=== PATIENT | female | born 1945 | race Caucasian/White ===

== ENCOUNTER → 2023-07-14 08:57 | Outpatient (REF) | payer OTHER, SELFPAY | LOC: RCS 08:57 | PROVIDERS: ATTENDING PHYSICIAN Internal Medicine Cardiovascular Disease; FAMILY PHYSICIAN Family Medicine | DX: I48.0 Paroxysmal atrial fibrillation (principal) | CPT/HCPCS: 93306 ==

== ENCOUNTER → 2024-05-16 12:54 | Outpatient (REF) | payer OTHER, SELFPAY | LOC: HWWDC 12:54 | PROVIDERS: ATTENDING PHYSICIAN Internal Medicine | DX: M85.80 Other specified disorders of bone density and structure, unspecified site (principal); Z12.31 Encounter for screening mammogram for malignant neoplasm of breast; M81.0 Age-related osteoporosis without current pathological fracture | CPT/HCPCS: 77063; 77067; 77080 ==

== ENCOUNTER → 2024-07-14 09:02 | Outpatient (REF) | payer OTHER, SELFPAY | LOC: RAD 09:02 | PROVIDERS: ATTENDING PHYSICIAN Nurse Practitioner; FAMILY PHYSICIAN Internal Medicine | DX: N39.46 Mixed incontinence (principal); N81.12 Cystocele, lateral; N20.0 Calculus of kidney | CPT/HCPCS: 76770; 76856 ==

== ENCOUNTER → 2024-07-25 09:23 | Outpatient (REF) | payer OTHER, SELFPAY | LOC: HWRAD 09:23 | PROVIDERS: ATTENDING PHYSICIAN Nurse Practitioner; FAMILY PHYSICIAN Internal Medicine | DX: N20.0 Calculus of kidney (principal) | CPT/HCPCS: 74176 ==

== ENCOUNTER 2024-12-04 15:00 | Emergency (ER) | payer OTHER, SELFPAY ==
[2024-12-04 15:04] VITALS: BP 134/68
[2024-12-04 15:43] LABS: Hematocrit 34.7 % (37.0-47.0); Hemoglobin 11.7 g/dL (12.0-16.0); Mean Corp Hgb Conc. 33.7 g/dL (33.0-37.0); Mean Corpuscular Volume 92.5 fL (81.0-99.0); Nucleated Red Blood Cells % 0 %; Platelet Count 205 10^3/uL (130-400); Red Cell Dist. Width 12.9 % (11.5-14.5)
[2024-12-04 15:56] LABS: ALT (SGPT) 12 U/L (0-35); AST (SGOT) 18 U/L (14-36); Albumin 4.0 g/dl (3.5-5.0); Alkaline Phosphatase 63 U/L (38-126); Blood Urea Nitrogen 27 mg/dl (7-17); Calcium 9.1 mg/dl (8.4-10.2); Carbon Dioxide 27 mmol/L (22-30); Chloride 103 mmol/L (98-107); Glucose 157 mg/dl (70-99); Potassium 3.8 mmol/L (3.5-5.1); Sodium 136 mmol/L (135-145); Total Protein 6.8 g/dl (6.3-8.2); eGFR 57.66
[2024-12-04 16:08] VITALS: BP 133/62
--- NOTE | 2024-12-04 16:26 | ED.GENMED ---
History of Present Illness
General
Chief Complaint: Fainting/Passed Out
Source: patient
Exam Limitations: none
Time Seen by Provider: 12/04/24 16:06
Nursing documentation reviewed up to this point in time: agreed with
History of Present Illness
History of Present Illness:
Patient is a 79-year-old female presents to the ER for evaluation after syncopal episode. Patient initially reported to triage it was on Thursday but it was on Thursday. She reports on Thursday morning she was in the shower and felt very weak and
lightheaded and while getting out of the shower passed out. She woke up on the floor and was confused at the time. She went to bed and laid in bed throughout the day yesterday. She had no associated headache or nausea or vomiting. She presents
here because she is on Eliquis and came for evaluation. The day prior to her episode of syncope she was very tired (after having babysat grandchildren )and slept all day and did not really eat or drink much.
She does complain of bruising to her forehead and around the right eye orbital region.
Past History
Past History
ED Past Medical History: GERD, HTN, Hypothyroidism and Other (Kidney stones)
ED Past Surgical History: None
Social History
Tobacco: Non-smoker
Alcohol: None
Drug: None
Personal:
Living: with family
Employment: Retired
Phy Exam
General Physical Exam
General Presentation: no apparent distress
General age: appears stated age
General Skin: warm and dry
General Habitus: elderly
General Mental: alert
General Hydration: dry mucous membranes
Cardiovascular Exam
Cardiovascular Exam: regular rate/rhythm, no murmur and normal peripheral pulses
Pulmonary Exam
Pulmonary Exam: lungs clear and no respiratory distress
Neurological Exam
Neurological Exam: alert, oriented x3, no motor deficits and no sensory deficits
Musculoskeletal Exam
Musculoskeletal Exam: full ROM and other (Ecchymosis to+ right forehead and right lateral orbit, mild ecchymosis to left knee mild anterior tenderness full rom )
Skin Exam
Skin Exam: normal color and warm/dry
Psychiatric Exam
Psychiatric Exam: normal mood/affect
Course
Orders/Labs/Results
Orders:
Orders
12/04/24 15:10
EKG [Electrocardiogram (*1)] Urgent
Reason for Study: Tachycardia
EKG- Treatment ONCE
12/04/24 15:26
Complete Blood Count/With Diff Urgent
Comprehensive Metabolic Panel Urgent
12/04/24 16:34
CT Cervical Spine W/o Iv Contr Urgent
Comment:
Reason For Exam: trauma
CT Facial Bones W/o Iv Contras Urgent
Comment:
Reason For Exam: trauma right orbital pain
CT Head W/o Iv Contrast Urgent
Comment:
Reason For Exam: trauma
12/04/24 16:35
Orthostatic VS- Treatment ONCE
12/04/24 16:36
Cardiac Monitoring- Treatment ONCE
IV Insert/Care/Rem.- Treatment PRN
0.9% Sodium Chloride 1000 ml [Nss] 1,000 ml IV BOLUS
12/04/24 17:58
Knee, Left 4 or More Views [CR Knee - Left 4 Or More View*] Urgent
Comment:
Reason For Exam: trauma
Abnormal Lab Results
12/04/24
15:26
RBC 3.75 L 10^6/uL
(4.20-5.40)
Hgb 11.7 L g/dL
(12.0-16.0)
Hct 34.7 L %
(37.0-47.0)
MCH 31.2 H pg
(27.0-31.0)
Immature Gran % 0.6 H %
(0-0.5)
Monocytes % 10.3 H %
(1.7-9.3)
BUN 27 H mg/dl
(7-17)
Glucose 157 H mg/dl
(70-99)
12/04/24 15:26
12/04/24 15:26
Vital Signs
Initial and Last Documented VS:
Initial Vital Signs
Temp Pulse Resp BP Pulse Ox
98.5 F 97 18 134/68 100
12/04/24 15:04 12/04/24 15:04 12/04/24 15:04 12/04/24 15:04 12/04/24 15:04
Last Documented Vital Signs
Temp Pulse Resp BP Pulse Ox
98.5 F 81 16 131/74 97
12/04/24 15:04 12/04/24 18:14 12/04/24 18:14 12/04/24 18:14 12/04/24 18:14
MDM/Problems Addressed
Differential Diagnosis Includes:
Not limited to dehydration syncope head injury
MDM/Problems Addressed:
Patient is a 79-year-old female on [facility] for A-fib presents after syncopal episode on Thursday. As documented she had a syncopal episode Thursday rested yesterday but came to the ER for evaluation today. She does have obvious bruising to her
forehead. She admits to not drinking a lot of water . She does appear slightly dry on exam. Her BUN is elevated consistent with dehydration. She was given fluids here. CT head facial bones and cervical spine all negative. Patient complained of
soreness to left knee x-rays are negative. Patient feels well up to go home with negative orthostatic vital signs.
Symptoms of syncope likely from dehydration.
Patient admits to not drinking or eating much the day prior to her syncopal episode.
Chronic conditions affecting care:
A-fib on [facility]
*Radiology
Radiology exam reviewed: radiology read reviewed
*Pulse Oximetry
SaO2: 100
Oxygen Mode of Delivery: Room air
Patient hypoxic: no
*EKG
Heart Rate: 86
Rate: normal
Rhythm: sinus
[place]: left axis deviation
Ischemia: non-specific ST changes
*Critical Care Note
Total Time (30-74mins, 75-104mins- exclusive of procedures): Not Applicable
ED Attending Note
-
Portions of this chart may have been created with voice recognition software.� Occasional wrong word or��sound alike� substitutions may have occurred due to the inherent limitations of voice recognition software.
Discharge Plan
Departure
Patient Disposition: Home (Routine Discharge)
Date of Disposition: 12/04/24
Time of Disposition: 18:51
Patient with high blood pressure during this ER visit?: Yes
Condition: Fair
Covid-19: Not Applicable
Discharge Problem:
Head injury, Syncope, Contusion, Acute dehydration
Instructions: Head injury in adults, Syncope (Fainting) (DC), Contusion
Prescriptions:
No Action
levothyroxine 88 MCG tablet
88 mcg PO DAILY
lysine 500 MG tablet
500 mg PO DAILY
omeprazole magnesium 20 MG tablet,delayed release (DR/EC)
20 mg PO DAILY
cholecalciferol (vitamin D3) 1,000 UNITS tablet
1,000 units PO DAILY
calcium carbonate-vitamin D3 [Calcium 600 + D(3)] 1 EACH tablet
1 ea PO HS
diltiazem HCl 120 mg Capsule,Extended Release 24hr
120 mg PO DAILY 30 Days Qty: 30 0RF
Eliquis 5 mg Tablet
5 mg PO BID 30 Days Qty: 60 0RF
Referrals:
Mario Mccarthy MD [Family Provider, Internal Medicine]
Activity Restrictions/Additional Instructions:
As discussed your CAT scans were negative. You were dehydrated and given fluids. Please increase your water intake. Your x-ray is also negative. Follow-up with your family doctor in the next several days for reevaluation. Return if any
worsening of symptoms
Interventions
Interventions:
*Risk Screen - Suicide Last Done: 12/04/24 15:04
*General Assessment Last Done: 12/04/24 15:04
*Neglect/Abuse Screening Last Done: 12/04/24 15:04
*ED- Fall Risk Assessment Last Done: 12/04/24 15:04
*ED COVID-19 Vaccine History Last Done: 12/04/24 15:04
*ED Influenza Vaccine History Last Done: 12/04/24 15:04
ED- Cardiac Assessment Last Done: 12/04/24 16:04
ED- Neurological Assessment Last Done: 12/04/24 16:04
Discharge Date and Time
Print Language: SWEDISH
[2024-12-04 16:46] VITALS: BP 132/65; BP 133/69; BP 138/64; PULSE 77; PULSE 81; PULSE 89
[2024-12-04] MEDS: NSS 1000 IV (17:04)
[2024-12-04 18:14] VITALS: BP 131/74
== END 2024-12-04 19:08 | disposition home or self-care (01) ==
LOC: EMR 15:00
PROVIDERS: Emergency Medicine; EMERGENCY PHYSICIAN Emergency Medicine; FAMILY PHYSICIAN Internal Medicine
DX: R55 Syncope and collapse (principal); E86.0 Dehydration; S00.83XA Contusion of other part of head, initial encounter; W19.XXXA Unspecified fall, initial encounter; E03.9 Hypothyroidism, unspecified; I10 Essential (primary) hypertension; I48.91 Unspecified atrial fibrillation; Z79.01 Long term (current) use of anticoagulants; Z87.442 Personal history of urinary calculi
CPT/HCPCS: 96360; 99284; 70450; 70486; 72125; 73564; 80053; 85025; 93005

== ENCOUNTER 2024-12-17 01:04 | Inpatient (IN) | payer OTHER, SELFPAY ==
[2024-12-16 16:24] VITALS: BP 153/77
[2024-12-16 16:42] LABS: Hematocrit 35.6 % (37.0-47.0); Hemoglobin 11.6 g/dL (12.0-16.0); Mean Corp Hgb Conc. 32.6 g/dL (33.0-37.0); Mean Corpuscular Volume 97.8 fL (81.0-99.0); Nucleated Red Blood Cells % 0 %; Platelet Count 239 10^3/uL (130-400); Red Cell Dist. Width 12.7 % (11.5-14.5)
[2024-12-16 17:04] LABS: ALT (SGPT) 13 U/L (0-35); AST (SGOT) 17 U/L (14-36); Albumin 3.9 g/dl (3.5-5.0); Alkaline Phosphatase 63 U/L (38-126); Blood Urea Nitrogen 17 mg/dl (7-17); Calcium 9.4 mg/dl (8.4-10.2); Carbon Dioxide 29 mmol/L (22-30); Chloride 103 mmol/L (98-107); Glucose 110 mg/dl (70-99); Potassium 3.7 mmol/L (3.5-5.1); Sodium 138 mmol/L (135-145); Total Protein 6.8 g/dl (6.3-8.2); eGFR > 60.00
--- NOTE | 2024-12-16 18:42 | ED.GENMED ---
History of Present Illness
<SHRUTI Chase - Last Filed: 12/18/24 01:44 EST>
General
Chief Complaint: Weakness
Source: patient
Exam Limitations: none
Time Seen by Provider: 12/16/24 18:29
Nursing documentation reviewed up to this point in time: agreed with
History of Present Illness
History of Present Illness:
Patient is a 79-year-old female presenting to the ER for evaluation. Patient was seen here December 04 for syncope head injury hydrated at that time and sent home. She reports this past Thursday she had a slight pain in her left abdomen and then
vomited. She also had an episode on Thursday when she drove to her son's house but does not recall how she got there. While there she developed chills and vomited and felt very weak. Since then she has had intermittent nausea and has felt weak.
She complains of worsening headache. In addition she does complain of intermittent left-sided abdominal pain.
She is on blood thinners. When she was seen in December 04 she had a head C-spine and facial bones all of which were negative. She also had complaints of knee pain at that time and her knee was x-rayed and negative. She is not recalling having
abdominal pain after initial injury.
Past History
<SHRUTI Chaes - Last Filed: 12/18/24 01:44 EST>
Past History
ED Past Medical History: GERD, HTN, Hypothyroidism and Other (Kidney stones)
ED Past Surgical History: None
Social History
Tobacco: Non-smoker
Alcohol: None
Drug: None
Personal:
Living: with family
Employment: Retired
Phy Exam
<SHRUTI Chase - Last Filed: 12/18/24 01:44 EST>
General Physical Exam
General Presentation: no apparent distress
General age: appears stated age
General Skin: warm and dry
General Habitus: elderly
General Mental: alert
General Hydration: appears well hydrated
ENT Exam
ENT Exam: EOMI
Eye Exam
Eye Exam: PERRL and other (Scattered right-sided ecchymosis around the eye and face)
Cardiovascular Exam
Cardiovascular Exam: regular rate/rhythm, no murmur and normal peripheral pulses
Pulmonary Exam
Pulmonary Exam: lungs clear and no respiratory distress
Gastrointestinal Exam
Gastrointestinal Exam: soft and other (left sided abd tenderness )
Neurological Exam
Neurological Exam: alert and oriented x3
Musculoskeletal Exam
Musculoskeletal Exam: full ROM and other (Scattered ecchymosis to right face)
Skin Exam
Skin Exam: normal color and warm/dry
Psychiatric Exam
Psychiatric Exam: normal mood/affect
Course
<SHRUTI Chase - Last Filed: 12/18/24 01:44 EST>
Orders/Labs/Results
Orders:
Orders
12/16/24 16:32
CBC/With Diff [Complete Blood Count/With Diff] Urgent
Comprehensive Metabolic Panel Urgent
12/16/24 19:12
CT Abd/pelvis W Iv Cont Urgent
Comment:
Reason For Exam: left side abd pain
CT Head W/o Iv Contrast Urgent
Comment:
Reason For Exam: trauma
12/16/24 19:13
0.9% Sodium Chloride 1000 ml [Nss] 1,000 ml IV BOLUS
Ondansetron Injectable [Zofran] 4 mg IV NOW STA
12/16/24 19:25
Electrocardiogram (*1) Stat
Reason for Study: Other
Other Reason for Exam: chest pain
Cardiac Monitoring- Treatment ONCE
EKG- Treatment ONCE
12/16/24 21:52
UA Reflex to Culture [Urinalysis Reflex To Culture] Urgent
Date Specimen was Collected: 12/16/24
Time Specimen was Collected: 21:50
Urine Microscopic Reflex Cult Urgent
Urine Culture Urgent
TAZ Source: U
Specimen Description:
Date Specimen was Collected: 12/16/24
Time Specimen was Collected: 21:50
12/16/24 23:16
LevoFLOXacin 500 MG/100 ML [Levaquin] 500 mg in 100 ml IV NOW
12/16/24 23:25
Blood Culture Q30M
TAZ Source: Blood/Venous
Specimen Description:
12/16/24 23:35
Blood Culture Q30M
TAZ Source: Blood/Venous
Specimen Description:
12/17/24 00:26
Admit/Transfer Patient As Directed
Co-Sign Provider:
Level of Care: Inpatient admission
Assign to:: Telemetry
Physician / Group: Christopher
Diagnosis: UTI, Renal Cyst v Abscess
Reason for Telemetry: Arrhythmia
Date to Stop Telemetry: 12/20/24
Time to Stop Telemetry: 11:00
Reason for Hospitalization: UTI, Renal Cyst v Abscess
Expected length of stay greater than two midnights?: Yes
ELOS- Estimated Length of Stay in days: 2
I certify the patient meets the requirements for IP care: Yes
PRN Pain Medication Management As Directed
May give lesser potent ordered pain med per pt: Yes
preference::
Protocol:: Medication orders for pain may be administered in a
manner that supports deferring to patient preference
when the pt is:
- Requesting an ordered lesser potent pain medication.
Least to most potent pain medications are defined
as: acetaminophen < NSAID < tramadol < opioids
(morphine, oxycodone, hydromorphone).
- Requesting a lesser dose of the same medication IF
ORDERED.
- Requesting a less intrusive route of administration
if both routes are prescribed by the provider (PO <
IV).
12/17/24 00:27
Code Status As Directed
Resuscitation Status: Full Code
12/17/24 02:50
Acetaminophen [Tylenol] 650 mg PO Q4HPRN PRN
12/17/24 02:50
UROLOGY CONSULT Routine
Consulting Provider: Gerson Garza
Was physician already notified: Yes
Comment: L renal cyst v abscess
Activity As Directed
Activity Level: Ambulate
With Assistance
Bladder Scan As Directed
Follow Bladder Retention/Intermittent Cath Algorithm?: Yes
PRN if no void in __ hours: 6
Frequency: Per Retention Algorithm
If Bladder Scan Result >: 400
then:: Straight cath
EKG with chest pain [ECG as needed] As Directed
ECG as needed for:: Chest Pain
I/O [Intake/ Output] As Directed
Frequency: Per unit guidelines
Orthostatic Vital Signs As Directed
Orthostatic VS Frequency: BID
Pneumatic Compression Sleeves As Directed
Type: Knee high
Straight Cath As Directed
Frequency: Per Retention Algorithm
Additional Instructions: straight cath as needed per acute urinary retention algorithm for 24 hrs
Additional Instructions: for bladder scan greater than 400 mL
Vital Signs As Directed
Frequency: Per unit guidelines
Oxygen Therapy [O2 Therapy] [RESP] Routine
Titrate/Wean O2 to maintain O2 sat greater than (%): 94
Ot Eval And Treat Routine
PT Consult [Pt Eval And Treat] Routine
Activity Level: Ambulate
With Assistance
DX Deep Vein Thrombosis Video Routine
12/17/24 04:00
CefTRIAXone [Rocephin] 1,000 mg IV Q24H
12/17/24 Breakfast
Clear Liquid
At Your Request: Full Participation
Levothyroxine [Synthroid] 75 mcg PO DAILY @ 0600
12/17/24 07:12
Basic Metabolic Panel IN AM
Complete Blood Count/No Diff IN AM
12/17/24 08:00
Diltiazem Extended Release [Cardizem Cd] 120 mg PO DAILY
12/20/24 11:00
DC Protocol for Telemetry ONCE
Abnormal Lab Results
12/16/24 12/16/24
16:32 21:52
RBC 3.64 L 10^6/uL
(4.20-5.40)
Hgb 11.6 L g/dL
(12.0-16.0)
Hct 35.6 L %
(37.0-47.0)
MCH 31.9 H pg
(27.0-31.0)
MCHC 32.6 L g/dL
(33.0-37.0)
Absolute Neuts (auto) 7.0 H 10^3/uL
(1.4-6.5)
Absolute Monos (auto) 0.8 H 10^3/uL
(0.1-0.6)
Lymphocytes % 16.3 L %
(20.5-51.1)
Glucose 110 H mg/dl
(70-99)
Ur Occult Blood Reflex 3+ A
(Negative)
Urine Nitrite (Reflex) Positive A
(Negative)
Leukocyte Esterase Rfl 2+ A
(Negative)
Urine RBC 21-25 A /HPF
(0-2)
Urine WBC (Reflex) 50-60 A /HPF
(0-5)
Urine Bacteria (Reflex) Many A
(Negative)
Urine Albumin (Reflex) 1+ A
(Neg - Trace)
12/16/24 16:32
12/16/24 16:32
Vital Signs
Initial and Last Documented VS:
Initial Vital Signs
Pulse Resp BP Pulse Ox
95 16 153/77 98
12/16/24 16:24 12/16/24 16:24 12/16/24 16:24 12/16/24 16:24
Last Documented Vital Signs
Temp Pulse Resp BP Pulse Ox
97.7 F 82 18 173/79 97
12/17/24 22:30 12/17/24 22:30 12/17/24 22:30 12/17/24 22:30 12/17/24 22:30
Restaurant Managing Partner consulted with Physician
Restaurant Managing Partner consulted with physician?: Yes
Name of Physician Consulted: DR Mitchell
<Da Ruiz, DO - Last Filed: 12/16/24 23:20>
Orders/Labs/Results
Orders:
Orders
12/16/24 16:32
CBC/With Diff [Complete Blood Count/With Diff] Urgent
Comprehensive Metabolic Panel Urgent
12/16/24 19:12
CT Abd/pelvis W Iv Cont Urgent
Comment:
Reason For Exam: left side abd pain
CT Head W/o Iv Contrast Urgent
Comment:
Reason For Exam: trauma
12/16/24 19:13
0.9% Sodium Chloride 1000 ml [Nss] 1,000 ml IV BOLUS
Ondansetron Injectable [Zofran] 4 mg IV NOW STA
12/16/24 19:25
Electrocardiogram (*1) Stat
Reason for Study: Other
Other Reason for Exam: chest pain
Cardiac Monitoring- Treatment ONCE
EKG- Treatment ONCE
12/16/24 21:52
UA Reflex to Culture [Urinalysis Reflex To Culture] Urgent
Date Specimen was Collected: 12/16/24
Time Specimen was Collected: 21:50
Urine Microscopic Reflex Cult Urgent
Urine Culture Urgent
TAZ Source: U
Specimen Description:
Date Specimen was Collected: 12/16/24
Time Specimen was Collected: 21:50
12/16/24 23:16
LevoFLOXacin 500 MG/100 ML [Levaquin] 500 mg in 100 ml IV NOW
12/16/24 23:25
Blood Culture Q30M
TAZ Source: Blood/Venous
Specimen Description:
12/16/24 23:35
Blood Culture Q30M
TAZ Source: Blood/Venous
Specimen Description:
12/17/24 00:26
Admit/Transfer Patient As Directed
Co-Sign Provider:
Level of Care: Inpatient admission
Assign to:: Telemetry
Physician / Group: Christopher
Diagnosis: UTI, Renal Cyst v Abscess
Reason for Telemetry: Arrhythmia
Date to Stop Telemetry: 12/20/24
Time to Stop Telemetry: 11:00
Reason for Hospitalization: UTI, Renal Cyst v Abscess
Expected length of stay greater than two midnights?: Yes
ELOS- Estimated Length of Stay in days: 2
I certify the patient meets the requirements for IP care: Yes
PRN Pain Medication Management As Directed
May give lesser potent ordered pain med per pt: Yes
preference::
Protocol:: Medication orders for pain may be administered in a
manner that supports deferring to patient preference
when the pt is:
- Requesting an ordered lesser potent pain medication.
Least to most potent pain medications are defined
as: acetaminophen < NSAID < tramadol < opioids
(morphine, oxycodone, hydromorphone).
- Requesting a lesser dose of the same medication IF
ORDERED.
- Requesting a less intrusive route of administration
if both routes are prescribed by the provider (PO <
IV).
12/17/24 00:27
Code Status As Directed
Resuscitation Status: Full Code
12/17/24 02:50
Acetaminophen [Tylenol] 650 mg PO Q4HPRN PRN
12/17/24 02:50
UROLOGY CONSULT Routine
Consulting Provider: Gerson Garza
Was physician already notified: Yes
Comment: L renal cyst v abscess
Activity As Directed
Activity Level: Ambulate
With Assistance
Bladder Scan As Directed
Follow Bladder Retention/Intermittent Cath Algorithm?: Yes
PRN if no void in __ hours: 6
Frequency: Per Retention Algorithm
If Bladder Scan Result >: 400
then:: Straight cath
EKG with chest pain [ECG as needed] As Directed
ECG as needed for:: Chest Pain
I/O [Intake/ Output] As Directed
Frequency: Per unit guidelines
Orthostatic Vital Signs As Directed
Orthostatic VS Frequency: BID
Pneumatic Compression Sleeves As Directed
Type: Knee high
Straight Cath As Directed
Frequency: Per Retention Algorithm
Additional Instructions: straight cath as needed per acute urinary retention algorithm for 24 hrs
Additional Instructions: for bladder scan greater than 400 mL
Vital Signs As Directed
Frequency: Per unit guidelines
Oxygen Therapy [O2 Therapy] [RESP] Routine
Titrate/Wean O2 to maintain O2 sat greater than (%): 94
Ot Eval And Treat Routine
PT Consult [Pt Eval And Treat] Routine
Activity Level: Ambulate
With Assistance
DX Deep Vein Thrombosis Video Routine
12/17/24 04:00
CefTRIAXone [Rocephin] 1,000 mg IV Q24H
12/17/24 Breakfast
Clear Liquid
At Your Request: Full Participation
Levothyroxine [Synthroid] 75 mcg PO DAILY @ 0600
12/17/24 07:12
Basic Metabolic Panel IN AM
Complete Blood Count/No Diff IN AM
12/17/24 08:00
Diltiazem Extended Release [Cardizem Cd] 120 mg PO DAILY
12/20/24 11:00
DC Protocol for Telemetry ONCE
Abnormal Lab Results
12/16/24 12/16/24
16:32 21:52
RBC 3.64 L 10^6/uL
(4.20-5.40)
Hgb 11.6 L g/dL
(12.0-16.0)
Hct 35.6 L %
(37.0-47.0)
MCH 31.9 H pg
(27.0-31.0)
MCHC 32.6 L g/dL
(33.0-37.0)
Absolute Neuts (auto) 7.0 H 10^3/uL
(1.4-6.5)
Absolute Monos (auto) 0.8 H 10^3/uL
(0.1-0.6)
Lymphocytes % 16.3 L %
(20.5-51.1)
Glucose 110 H mg/dl
(70-99)
Ur Occult Blood Reflex 3+ A
(Negative)
Urine Nitrite (Reflex) Positive A
(Negative)
Leukocyte Esterase Rfl 2+ A
(Negative)
Urine RBC 21-25 A /HPF
(0-2)
Urine WBC (Reflex) 50-60 A /HPF
(0-5)
Urine Bacteria (Reflex) Many A
(Negative)
Urine Albumin (Reflex) 1+ A
(Neg - Trace)
12/16/24 16:32
12/16/24 16:32
Vital Signs
Initial and Last Documented VS:
Initial Vital Signs
Pulse Resp BP Pulse Ox
95 16 153/77 98
12/16/24 16:24 12/16/24 16:24 12/16/24 16:24 12/16/24 16:24
Last Documented Vital Signs
Temp Pulse Resp BP Pulse Ox
97.7 F 82 18 173/79 97
12/17/24 22:30 12/17/24 22:30 12/17/24 22:30 12/17/24 22:30 12/17/24 22:30
<SHRUTI Chase - Last Filed: 12/18/24 01:44 EST>
MDM/Problems Addressed
MDM/Problems Addressed:
As documented patient is a 79-year-old female who presented to the ER for evaluation. Patient was seen here December 04 for syncope head injury. At that time she had imaging of her head facial bones and cervical spine all of which were negative.
Patient reports this past Thursday several days ago she did not feel well does not recall driving to her son's house though she did and did have the chills while there. She has has limited left-sided abdominal pain and has had worsening headache.
She is on Eliquis. With continued headache CAT scan ordered and pending at this time with patient's complaints of abdominal pain will order CAT scan. Pt is aao x3 nml neuro exam. CAre of pt transferred to DR Riuz with ct pendings.
Chronic conditions affecting care:
on eliquis for afib
<SHRUTI Chase - Last Filed: 12/18/24 01:44 EST>
*Radiology
Radiology exam reviewed: radiology read reviewed
*Pulse Oximetry
SaO2: 98
Oxygen Mode of Delivery: Room air
Patient hypoxic: no
*Critical Care Note
Total Time (30-74mins, 75-104mins- exclusive of procedures): Not Applicable
ED Attending Note
<SHRUTI Chase - Last Filed: 12/18/24 01:44 EST>
-
Portions of this chart may have been created with voice recognition software.� Occasional wrong word or��sound alike� substitutions may have occurred due to the inherent limitations of voice recognition software.
<Da Ruiz DO - Last Filed: 12/16/24 23:20>
ED Attending Note
Patient seen and examined by attending physician: Yes
I performed the substantive portion of visit, reviewed & personally made and approve the management plan that is documented in note by myself or ANA.: Yes
ED Attending Note:
Seen with TOMATO PULPER OPERATOR examined independently 79-female status post fall hit her head to the ER CAT scan discharged home. Therefore developed fatigue chills vomiting left flank pain, her period of amnesia to the event here she is bruised up repeat CAT scan
of her head noted CT of the abdomen pelvis shows potential ruptured cyst versus infection urinalysis noted allergies noted this point I think would be prudent admitted to hospital
Discharge Plan
Departure
Patient Disposition: Admit
Date of Disposition: 12/16/24
Time of Disposition: 23:20
Admit to: Med/Surg and Telemetry
Presentation/result/management discussed w/ accepting MD/DO: Hospitalist
Patient with high blood pressure during this ER visit?: No
Condition: Fair
Discharge Problem:
Complicated UTI (urinary tract infection)
Interventions
Interventions:
*Risk Screen - Suicide Last Done: 12/16/24 16:24
*General Assessment Last Done: 12/16/24 21:58
*Neglect/Abuse Screening Last Done: 12/16/24 16:24
*ED- Fall Risk Assessment Last Done: 12/16/24 20:10
*ED COVID-19 Vaccine History Last Done: 12/16/24 20:10
*ED Influenza Vaccine History Last Done: 12/16/24 20:10
*Nursing Disposition Last Done: 12/17/24 02:50
ED- Cardiac Assessment Last Done: 12/16/24 18:30
ED- Neurological Assessment Last Done: 12/16/24 18:30
ED- Pulmonary Assessment Last Done: 12/16/24 18:30
Discharge Date and Time
Discharge Date/Time: 12/17/24 02:50
[2024-12-16 19:23] VITALS: BMI 24.3
[2024-12-16] MEDS: NSS 1000 IV (20:35)
[2024-12-16 20:38] VITALS: BP 158/65
[2024-12-16 21:00] VITALS: BP 163/69
[2024-12-16 21:58] LABS: Urine Character Clear (Clear)
[2024-12-16 22:30] LABS: Urine Red Blood Cell 21-25 /HPF (0-2); Urine Squamous Cell 0-2 /LPF (Few); Urine Urothelial Cell 0-2 /LPF (FEW)
[2024-12-16 22:31] LABS: Urine White Cell 50-60 /HPF (0-5)
[2024-12-16 22:53] VITALS: BP 155/69
[2024-12-16 23:15] VITALS: BP 142/114
[2024-12-16] MEDS: LEVAQUIN 100 IV (23:42)
[2024-12-17] VITALS (12 sets, daily range): BP systolic 137–176; BP diastolic 60–87; PULSE 85–99; BMI 24.4
--- NOTE | 2024-12-17 00:33 | HPS.HSE ---
Family Physician
-
Family Physician: Mario Mccarthy MD
Chief Complaint
-
Weakness, Abd Pain, N/V
History of Present Illness
Patient is a 79y F with PMH significant for hypothyroidism and paroxysmal A-Fib who presents to ED complaining of weakness abdominal pain, N/V, etc. Patient states that her symptoms started on 12/03 when she had a fall at home. Patient describes
exiting the shower and losing consciousness / falling to the floor. She struck her face / head on the ground. She was able to get up unassisted and went to bed. She presented to the ED the following day for evaluation. Imaging studies at that
time were unremarkable. Patient was advised to increased fluid intake and was discharged to home.
Patient felt fairly well for about a week. Thursday of this week she developed shaking chills, left-sided abdominal pain and N/V. She reports episodes of 'missing time' such as driving somewhere with no recollection of the actual drive, etc.
She was weak, mildly confused / disoriented and had intermittent episodes of L abdominal pain and N/V. No diarrhea.
No new urinary complaints - though she is followed by Uro / Tile Machine Operator for chronic urge incontinence. She notes that she has NATALI / bladder lift tentatively planned.
Patient noted no significant change in her symptoms throughout the week, and today decided to present to the ED for further evaluation.
Medical History
Past Medical History
Past Medical History: Reports Other
Additional Past Medical History:
Paroxysmal Atrial Fibrillation
Hypothyroidism
Hypertension
Urge Incontinence
Nephrolithiasis
Past Surgical History: Reports Other
Additional Past Surgical History:
x 2
Social History
Tobacco: Non-smoker
Alcohol: Occasional (Rare)
Drug: None
Personal:
Living: With Family
Family History
Family History: Not pertinent
Allergies / Home Medications
Allergies reflects when Allergies were last updated in [facility].
Home Medications with original date entered in [facility]
Allergy/Medication List:
Allergies
Allergy/AdvReac Type Severity Reaction Status Date / Time
amoxicillin (Amoxicillin) Allergy Rash Verified 12/16/24 16:23
erythromycin base Allergy Vomiting Verified 12/16/24 16:23
(Erythromycin Base)
Ilutpxg-SIS-VpA Reductase Allergy Unknown Verified 12/16/24 16:23
Inhibitor
Home Medications
calcium 600 mg (as carbonate)-vitamin D3 10 mcg (400 unit) tablet (Calcium 600 + D(3)) 1 ea PO HS Supplement 07/18/19
cholecalciferol (vitamin D3) 25 mcg (1,000 unit) tablet 1,000 units PO DAILY Supplement 07/18/19
lysine 500 mg tablet 500 mg PO DAILY Supplement 07/18/19
apixaban 5 mg tablet (Eliquis) 5 mg PO BID 30 days #60 tabs 03/29/22
diltiazem HCl 120 mg capsule,extended release 24 hr 120 mg PO DAILY 30 days #30 caps 03/29/22
levothyroxine 75 mcg tablet 75 mcg PO DAILY 12/17/24
mirabegron 25 mg tablet,extended release 24 hr (Myrbetriq) 25 mg PO DAILY 12/17/24
Review of Systems
-
History Source: Patient
A 12 point ROS was completed and negative except as noted: Yes
Constitutional: Reports Fever, Fatigue and Chills
EENT: Denies Sore Throat
Respiratory: Denies Cough or Trouble Breathing
Cardiac: Denies Chest Pain or Palpitations
Abdomen/GI: Reports Abdominal Pain, Nausea and Vomiting; Denies Diarrhea, Bloody Stools or Black Stools
: Reports Incontinence, Difficulty Voiding and Urgency; Denies Dysuria or Bleeding
Musculoskeletal: Denies Joint Pain or Edema
Neurological: Reports Dizzy; Denies Headache, Weakness or Numbness
Physical Exam
Vital Signs
Vital Signs
Temp Pulse Resp BP Pulse Ox
97.9 F 76 18 142/114 97
12/16/24 23:15 12/16/24 23:15 12/16/24 23:15 12/16/24 23:15 12/16/24 23:15
Physical Exam
General: Other (79y F in no acute distress.)
HEENT: Other (Resolving ecchymosis over R face from prior fall (12/03).)
Respiratory: Clear; No Wheezes, Rales or Rhonchi
Cardiac: S1/S2 and Regular Rhythm; No Murmur
GI: Soft, Non Distended, Normal Bowel Sounds and Other (Mild left-sided abdominal tenderness. No rebound / guarding. Pos BS.)
Genito-urinary: Other (No CVAT.)
Musculoskeletal: No Clubbing, No Cyanosis and No Edema
Neuro: AO x 3
Laboratory Results
-
12/16/24 16:32
12/16/24 16:32
Laboratory Results
Total Bilirubin 0.7 mg/dl (0.2-1.3) 12/16/24 16:32
AST 17 U/L (14-36) 12/16/24 16:32
ALT 13 U/L (0-35) 12/16/24 16:32
Alkaline Phosphatase 63 U/L (38-126) 12/16/24 16:32
Impression/Plan
-
A/P: Patient is a 79y F with PMH significant for A-Fib, hypertension and hypothyroidism who presents to ED complaining of weakness, intermittent abdominal pain and N/V x 4 days.
Left Renal Cyst
UTI
- Admit for further evaluation and treatment.
- CT scan done in the ED shows 1.8cm L lower pole cystic structure with surrounding stranding / inflammation.
- ? ruptured cyst (possible given recent trauma) versus abscess (also possible given abd discomfort, fevers / chills, etc).
- UA in the ED consistent with possible infection - follow-up culture results.
- IV abx with ceftriaxone for now.
- Urology evaluation for additional recommendations.
- Follow fever curve. Monitor for any new / worsening symptoms.
Fall at Home
- Likely vasovagal syncope episode post-shower on 12/03.
- CT x 2 without evidence of intracranial abnormality.
- PT evaluation.
- Monitor on tele overnight for any arrhythmia.
Paroxysmal Atrial Fibrillation
- Stable. In NSR at present.
- Continue Cardizem with holding parameters.
- Hold Eliquis acutely pending any possible intervention by IR / Uro / etc.
Benign Hypertension
- Stable. Continue Cardizem as noted.
Hypothyroidism
- Continue usual T4 supplementation.
OAB
- Chronic urinary complaints - no specific / acute symptoms or changes.
- Follow-up with Dr. Adkins as planned.
DVT Prophylaxis: SCDs
Code Status: Full
--- NOTE | 2024-12-17 03:07 | PTCARENOTE ---
Pt arrived to unit approx 0300, pt cooperative with admit process. Pt AAOx3 on arrival, oriented to unit, call cuello in reach, NSR on tele upon arrival, bed locked, bed in lowest position.
[2024-12-17] MEDS: ROCEPHIN 1000 MG IV (03:34)
[2024-12-17] MEDS: STERILE WATER FOR INJECTION 10 ML IV (03:34)
[2024-12-17] MEDS: TYLENOL 650 MG PO (03:34)
[2024-12-17] MEDS: SYNTHROID 75 MCG PO (06:21)
[2024-12-17 07:44] LABS: Hematocrit 30.8 % (37.0-47.0); Hemoglobin 10.6 g/dL (12.0-16.0); Mean Corp Hgb Conc. 34.4 g/dL (33.0-37.0); Mean Corpuscular Volume 93.6 fL (81.0-99.0); Platelet Count 191 10^3/uL (130-400); Red Cell Dist. Width 12.4 % (11.5-14.5)
[2024-12-17 08:01] LABS: Blood Urea Nitrogen 10 mg/dl (7-17); Calcium 8.5 mg/dl (8.4-10.2); Carbon Dioxide 28 mmol/L (22-30); Chloride 107 mmol/L (98-107); Estimated Creatinine Clearance 60 ml/min; Glucose 97 mg/dl (70-99); Potassium 3.5 mmol/L (3.5-5.1); Sodium 140 mmol/L (135-145); eGFR > 60.00
[2024-12-17] MEDS: CARDIZEM CD 120 MG PO (09:23)
--- NOTE | 2024-12-17 10:18 | W.PN.HOSP.TC ---
Today's Communication/Plan
-
see AP
Assessment / Plan
Assessment / Plan
HPI: 79 yo F with PMH significant for hypothyroidism and paroxysmal A-Fib who presented to ED complaining of weakness, abdominal pain, N/V, etc.
Patient states that her symptoms started on 12/03 when she had a fall at home. Patient describes exiting the shower and losing consciousness / falling to the floor. She struck her face / head on the ground. She was able to get up unassisted and
went to bed. She presented to the ED the following day for evaluation. Imaging studies at that time were unremarkable. Patient was advised to increased fluid intake and was discharged to home.
Patient felt fairly well for about a week. 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 She reports episodes of 'missing time' such as driving somewhere with no recollection of the actual drive, etc.
She was weak, mildly confused / disoriented and had intermittent episodes of L abdominal pain and N/V. No diarrhea.
No new urinary complaints - though she is followed by Uro / Hot Oiler for chronic urge incontinence. She notes that she has NATALI / bladder lift tentatively planned.
Patient noted no significant change in her symptoms throughout the week, and decided to present to the ED for further evaluation.
CT AP:
There is stranding along the mid/lower pole of the left kidney which appears to be associated with a 1.8 cm cystic focus along the lower pole. The differential includes ruptured renal cyst in the setting of prior trauma, contusion or infection with
developing abscess is possible.
Nonobstructing renal calculi.
Colonic diverticulosis.
The gallbladder wall appears mildly thickened although this may be secondary to underdistention.
A/P:
# Left Renal Cyst
# Possible complicated UTI
CT scan done in the ED shows 1.8cm L lower pole cystic structure with surrounding stranding / inflammation.
? ruptured cyst (possible given recent trauma) versus abscess (also possible given abd discomfort, fevers / chills, etc).
UA in the ED consistent with possible infection - follow-up culture results.
IV abx with ceftriaxone for now.
Urology evaluation for additional recommendations.
Follow fever curve. Monitor for any new / worsening symptoms.
# Fall at Home
Likely vasovagal syncope episode post-shower on 12/03.
CT x 2 without evidence of intracranial abnormality.
No orthostatic hypotension
EKG with NSR, tele monitor without arrhythmia.
PT evaluation.
# Paroxysmal Atrial Fibrillation, Stable.
In NSR at present.
Continue Cardizem with holding parameters.
Hold Eliquis acutely pending any possible intervention by IR / Uro / etc.
# Benign Hypertension, Stable.
Continue Cardizem as noted.
# Hypothyroidism
Continue usual T4 supplementation.
# OAB
Chronic urinary complaints - no specific / acute symptoms or changes.
Follow-up with Dr. Adkins as planned.
DVT Prophylaxis: SCDs
Code Status: Full
Anticipated Discharge: 24 - 48 hours
Subjective/Interval History
-
Date of Service: December 17, 2024
Objective Data
-
Labs:
Laboratory Results
12/17/24
07:12
WBC 5.6
Hgb 10.6 L
Hct 30.8 L
Plt Count 191 D
Sodium 140
Potassium 3.5
Chloride 107
Carbon Dioxide 28
BUN 10
Creatinine 0.7
Glucose 97
Calcium 8.5
Vital Signs:
Vital Signs
Temp Pulse Resp BP Pulse Ox
36.7 C 74 16 137/75 96
12/17/24 07:50 12/17/24 09:23 12/17/24 07:50 12/17/24 09:23 12/17/24 07:50
Review of Systems
-
History Source: Patient
All other systems: Reviewed and negative
Physical Exam
-
General: Well Developed, Well Nourished, No Apparent Distress, Comfortable and Conversant
HEENT: Normocephalic, Atraumatic and Moist Mucous Membranes
Respiratory: Clear to Auscultation and Non Labored Respirations; Negative Accessory Resp Muscle Use
Cardiac: Regular Rhythm and S1/S2; Negative Irregular Rhythm, Murmur, Rub or Gallop
GI: Soft, Nontender, Nondistended and Normal Bowel Sounds; Negative Organomegaly
Rectal: Deferred by Provider
Musculoskeletal: No Clubbing, No Cyanosis and No Edema
Skin: Negative Rash
Neuro: Awake, Alert and Nonfocal/Grossly Intact
Psych: Calm and Intact Judgement/Insight
Data Reviewed
-
CT Scan: Report Reviewed by me
Labs: Labs Reviewed by me
[2024-12-17] MEDS: KCL 40 MEQ PO (12:03)
--- NOTE | 2024-12-17 17:34 | TRANSFER ---
patient negative for orthostatic hypotension and cleared by PT. No bed/chair alarm in place. Patient independent in the room and halls.
[2024-12-18] VITALS (7 sets, daily range): BP systolic 102–176; BP diastolic 68–95; PULSE 74–109
[2024-12-18] MEDS: STERILE WATER FOR INJECTION 10 ML IV (04:47)
[2024-12-18] MEDS: ROCEPHIN 1000 MG IV (04:47)
[2024-12-18] MEDS: FLUSH (NSS) 1 FLUSH IV (04:48)
[2024-12-18] MEDS: SYNTHROID 75 MCG PO (05:49)
[2024-12-18] MEDS: CARDIZEM CD 120 MG PO (08:12)
[2024-12-18] MEDS: TYLENOL 650 MG PO (08:17)
[2024-12-18 09:27] LABS: Hematocrit 33.6 % (37.0-47.0); Hemoglobin 11.3 g/dL (12.0-16.0); Mean Corp Hgb Conc. 33.6 g/dL (33.0-37.0); Mean Corpuscular Volume 94.9 fL (81.0-99.0); Platelet Count 231 10^3/uL (130-400); Red Cell Dist. Width 12.4 % (11.5-14.5)
--- NOTE | 2024-12-18 10:01 | W.PN.HOSP.TC ---
Today's Communication/Plan
-
see A/P
Assessment / Plan
Assessment / Plan
HPI: 79 yo F with PMH significant for hypothyroidism and paroxysmal A-Fib who presented to ED complaining of weakness, abdominal pain, N/V, etc.
Patient states that her symptoms started on 12/03 when she had a fall at home. Patient describes exiting the shower and losing consciousness / falling to the floor. She struck her face / head on the ground. She was able to get up unassisted and
went to bed. She presented to the ED the following day for evaluation. Imaging studies at that time were unremarkable. Patient was advised to increased fluid intake and was discharged to home.
Patient felt fairly well for about a week. 3 days FORENSIC ANALYST, she developed shaking chills, left-sided abdominal pain and N/V. She reports episodes of 'missing time' such as driving somewhere with no recollection of the actual drive, etc.
She was weak, mildly confused / disoriented and had intermittent episodes of L abdominal pain and N/V. No diarrhea.
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 She notes that she has NATALI / bladder lift tentatively planned.
Patient noted no significant change in her symptoms throughout the week, and decided to present to the ED for further evaluation.
CT AP:
There is stranding along the mid/lower pole of the left kidney which appears to be associated with a 1.8 cm cystic focus along the lower pole. The differential includes ruptured renal cyst in the setting of prior trauma, contusion or infection with
developing abscess is possible.
Nonobstructing renal calculi.
Colonic diverticulosis.
The gallbladder wall appears mildly thickened although this may be secondary to underdistention.
A/P:
# Left Renal Cyst
# Possible complicated UTI
CT scan done in the ED shows 1.8 cm L lower pole cystic structure with surrounding stranding / inflammation.
UA in the ED consistent with possible infection- follow-up culture results.
IV abx with ceftriaxone for now.
Appreciate Urology input
Follow fever curve. Monitor for any new / worsening symptoms.
# Fall at Home
Likely vasovagal syncope episode post-shower on 12/03.
CT x 2 without evidence of intracranial abnormality.
No orthostatic hypotension
EKG with NSR, tele monitor without arrhythmia.
PT cleared pt
# Paroxysmal Atrial Fibrillation, Stable.
In NSR at present.
Continue Cardizem with holding parameters.
resume FORENSIC ANALYST Eliquis (no surgery planned per Uro)
# Benign Hypertension, Stable.
Continue Cardizem as noted.
# Hypothyroidism
Continue usual T4 supplementation.
# OAB
Chronic urinary complaints - no specific / acute symptoms or changes.
Follow-up with Dr. Adkins as planned.
DVT Prophylaxis: resume Eliquis
Code Status: Full
DW RN
Anticipated Discharge: Within 24 hours
Subjective/Interval History
-
Date of Service: December 18, 2024
Objective Data
-
Labs:
Laboratory Results
12/18/24
08:55
WBC 5.2
Hgb 11.3 L
Hct 33.6 L
Plt Count 231 D
Sodium Pending
Potassium Pending
Chloride Pending
Carbon Dioxide Pending
BUN Pending
Creatinine Pending
Glucose Pending
Calcium Pending
Vital Signs:
Vital Signs
Temp Pulse Resp BP Pulse Ox
37.1 C 66 18 143/72 98
12/18/24 07:10 12/18/24 08:12 12/18/24 07:10 12/18/24 08:12 12/18/24 07:10
I&O
12/17/24 12/18/24 12/19/24
06:59 05:59 06:59
Intake Total 2240 / 2240
Balance 2240 / 2240
Review of Systems
-
History Source: Patient
All other systems: Reviewed and negative
Physical Exam
-
General: Well Developed, Well Nourished, No Apparent Distress, Comfortable and Conversant
HEENT: Normocephalic, Atraumatic and Moist Mucous Membranes
Respiratory: Clear to Auscultation and Non Labored Respirations; Negative Accessory Resp Muscle Use
Cardiac: Regular Rhythm and S1/S2; Negative Irregular Rhythm, Murmur, Rub or Gallop
GI: Soft, Nontender, Nondistended and Normal Bowel Sounds; Negative Organomegaly
Rectal: Deferred by Provider
Musculoskeletal: No Clubbing, No Cyanosis and No Edema
Skin: Negative Rash
Neuro: Awake, Alert and Nonfocal/Grossly Intact
Psych: Calm and Intact Judgement/Insight
Data Reviewed
-
CT Scan: Report Reviewed by me
Labs: Labs Reviewed by me
[2024-12-18 10:07] LABS: Blood Urea Nitrogen 9 mg/dl (7-17); Calcium 9.1 mg/dl (8.4-10.2); Carbon Dioxide 28 mmol/L (22-30); Chloride 104 mmol/L (98-107); Estimated Creatinine Clearance 60 ml/min; Glucose 136 mg/dl (70-99); Magnesium 2.0 mg/dl (1.6-2.3); Potassium 4.1 mmol/L (3.5-5.1); Sodium 135 mmol/L (135-145); eGFR > 60.00
[2024-12-18] MEDS: ELIQUIS 5 MG PO ×2 (11:14→19:52)
--- NOTE | 2024-12-18 11:41 | W.PN.URO.CBU ---
Today's Communication / Plan
-
per hospitaist
Assessment / Plan
-
complex uti possibe pyelo blod cxs neg and urcx pending pt much better will await ur cx
Diagnosis
-
Date of Service: December 18, 2024
-
Patient Diagnosis:ascending uti complex vs cyst ruptire left lower pole blod cx s neg await ur cx
Post Op Day:
Subjective
-
much improved
Objective
-
Vital Signs
Temp Pulse Resp BP Pulse Ox
98.7 F 84 18 149/76 96
12/18/24 11:23 12/18/24 11:23 12/18/24 11:23 12/18/24 11:23 12/18/24 11:23
Intake and Output
12/17/24 12/18/24 12/19/24
06:59 05:59 06:59
Intake Total 2240 / 2240
Balance 2240 / 2240
Intake:
Oral fluids 0 / 2240
Other:
Number of approximated MODERATE 2
amounts of urine
Number of approximated LARGE 4
amounts of urine
Laboratory Results
12/18/24 08:55
12/18/24 08:55
Review of Systems
-
: Flank Pain
Physical Exam
-
General - well developed, well nourished, no acute distress
Chest - clear bilaterally
Abdomen - soft, non-tender, positive bowel sounds, no CVAT, no incisional pain or distention
Genitalia - normal
Rectal - normal
Skin - warm & dry with no rash
Neuro - AOx3, no motor deficits
Extremities - no clubbing, no cyanosis, no edema
Incision - clean, dry
Dressing - clean, dry, intact
Care Review
Data Reviewed
Discussed with: Hospitalist
--- NOTE | 2024-12-18 13:08 | CM ---
web development manager reviewed patient's chart and met with patient and patient lives with her spouse in a 2 story home with 2 steps to enter, patient is independent with adl's and ambulation, no dme, patient is currently ambulating 40 feet X 2 no assisted
device, home when stable, no needs.
PCP: Mario Mccarthy
Pharmacy: [facility] in [place]
[2024-12-19] VITALS (8 sets, daily range): BP systolic 130–174; BP diastolic 59–85; PULSE 80–868; O2SAT 97
[2024-12-19] MEDS: ROCEPHIN 1000 MG IV (04:59)
[2024-12-19] MEDS: STERILE WATER FOR INJECTION 10 ML IV (04:59)
[2024-12-19] MEDS: SYNTHROID 75 MCG PO (04:59)
[2024-12-19 08:34] LABS: Hematocrit 33.1 % (37.0-47.0); Hemoglobin 10.9 g/dL (12.0-16.0); Mean Corp Hgb Conc. 32.9 g/dL (33.0-37.0); Mean Corpuscular Volume 94.6 fL (81.0-99.0); Platelet Count 214 10^3/uL (130-400); Red Cell Dist. Width 12.7 % (11.5-14.5)
[2024-12-19] MEDS: CARDIZEM CD 120 MG PO (08:45)
[2024-12-19] MEDS: ELIQUIS 5 MG PO ×2 (08:46→19:52)
[2024-12-19 09:06] LABS: Blood Urea Nitrogen 10 mg/dl (7-17); Calcium 8.7 mg/dl (8.4-10.2); Carbon Dioxide 27 mmol/L (22-30); Chloride 105 mmol/L (98-107); Estimated Creatinine Clearance 70 ml/min; Glucose 91 mg/dl (70-99); Magnesium 2.1 mg/dl (1.6-2.3); Potassium 4.1 mmol/L (3.5-5.1); Sodium 139 mmol/L (135-145); eGFR > 60.00
--- NOTE | 2024-12-19 10:15 | W.PN.URO.CBU ---
Today's Communication / Plan
-
per ho[sitalit
Assessment / Plan
-
complex uti possibe pyelo blod cxs neg and urcx pending pt much better as expected et flank ain niot fully resolved will dfolow bt this is expected will reimage if fevr chills but for now this is the inflammatory discomfort expected from
pyelo or rupture cyst
Diagnosis
-
Date of Service: December 19, 2024
-
Patient Diagnosis:
Post Op Day:
Patient Diagnosis:ascending uti complex vs cyst ruptire left lower pole blod cx s neg await ur cx
Post Op Day:
Subjective
-
mild left flank pain
Objective
-
Vital Signs
Temp Pulse Resp BP Pulse Ox
97.9 F 80 18 153/69 97
12/19/24 07:30 12/19/24 08:45 12/19/24 07:30 12/19/24 08:45 12/19/24 07:30
Intake and Output
12/18/24 12/19/24 12/20/24
05:59 06:59 06:59
Intake Total 2240 / 2240 1500 / 1500
Balance 2240 / 2240 1500 / 1500
Intake:
Oral fluids 2240 / 2240 1500 / 1500
Other:
Number of approximated MODERATE 2 2
amounts of urine
Number of approximated LARGE 4 2
amounts of urine
Laboratory Results
12/19/24 07:03
12/19/24 07:03
Review of Systems
-
: Flank Pain
Physical Exam
-
General - well developed, well nourished, no acute distress
Chest - clear bilaterally
Abdomen - soft, non-tender, positive bowel sounds, no CVAT, no incisional pain or distention
Genitalia - normal
Rectal - normal
Skin - warm & dry with no rash
Neuro - AOx3, no motor deficits
Extremities - no clubbing, no cyanosis, no edema
Incision - clean, dry
Dressing - clean, dry, intact
--- NOTE | 2024-12-19 16:33 | W.PN.HOSP.TC ---
Today's Communication/Plan
-
UCx shows E. Coli. Cont Ceftriaxone. Poss dc home in 1-2 days.
Assessment / Plan
Assessment / Plan
79F with hypothyroidism and PAF p/w weakness, pain, found to have L renal cyst and UTI.
A/P:
E. Coli UTI
Left Renal Cyst
CT scan done in the ED shows 1.8 cm L lower pole cystic structure with surrounding stranding / inflammation.
Urine culture shows E. Coli >100K, final c/s pending
Continue IV ceftriaxone.
Urology consulted, concern for ruptured cyst vs complex UTI, observing on abx for now. Appears to be improving.
Follow fever curve. Monitor for any new / worsening symptoms.
Fall
possibly vasovagal syncope episode post-shower on 12/03.
CT x 2 without evidence of intracranial abnormality.
No orthostatic hypotension
EKG with NSR, tele monitor without arrhythmia.
PT cleared pt for home
Paroxysmal Atrial Fibrillation
Stable, in NSR.
Continue Cardizem with holding parameters.
Eliquis
Benign Hypertension
BP elevated
Continue diltiazem, if remains high will adjust dose
Hypothyroidism
Continue synthroid
OAB
Mybetriq currently on hold
Follow-up with Dr. Adkins as planned.
DVT Prophylaxis: Eliquis
Code Status: Full
Anticipated Discharge: Within 24 hours
Subjective/Interval History
-
Date of Service: December 19, 2024
Patient denies any acute issues overnight, no f/c/v/n/cough/sob/cp
Objective Data
-
Labs:
Laboratory Results
12/19/24
07:03
WBC 5.8
Hgb 10.9 L
Hct 33.1 L
Plt Count 214
Sodium 139
Potassium 4.1
Chloride 105
Carbon Dioxide 27
BUN 10
Creatinine 0.6
Glucose 91
Calcium 8.7
Vital Signs:
Vital Signs
Temp Pulse Resp BP Pulse Ox
97.9 F 80 16 134/69 95
12/19/24 15:30 12/19/24 15:30 12/19/24 15:30 12/19/24 15:30 12/19/24 15:30
I&O
12/18/24 12/19/24 12/20/24
05:59 06:59 06:59
Intake Total 2240 / 2240 1500 / 1500
Balance 2240 / 2240 1500 / 1500
Review of Systems
-
All other systems: Reviewed and negative
Physical Exam
-
General: No Apparent Distress
HEENT: Moist Mucous Membranes, Anicteric and PERRLA
Respiratory: Clear to Auscultation; Negative Wheezes, Rales or Rhonchi
Cardiac: Regular Rhythm and S1/S2; Negative Murmur, Rub or Gallop
GI: Soft, Nontender, Nondistended and Normal Bowel Sounds
Musculoskeletal: No Edema
Skin: Warm and Dry; Negative Rash, Ulcers or Lesions
Neuro: Awake and AO x 3
Hematologic / Lymphatic: No Lymphadenopathy
Psych: Calm
Data Reviewed
-
Labs: Labs Reviewed by me and Discussed with Patient
[2024-12-19] MEDS: TYLENOL 650 MG PO (17:38)
[2024-12-20 03:36] VITALS: BP 127/69
[2024-12-20] MEDS: ROCEPHIN 1000 MG IV (05:04)
[2024-12-20] MEDS: STERILE WATER FOR INJECTION 10 ML IV (05:04)
[2024-12-20] MEDS: SYNTHROID 75 MCG PO (05:04)
[2024-12-20 07:10] VITALS: BP 150/73
[2024-12-20] MEDS: TYLENOL 650 MG PO ×2 (08:20→18:11)
[2024-12-20] MEDS: CARDIZEM CD 120 MG PO (08:21)
[2024-12-20] MEDS: ELIQUIS 5 MG PO ×2 (08:21→19:59)
[2024-12-20] MEDS: ZOSYN 50 IV (10:19)
[2024-12-20 11:05] VITALS: BP 140/78; BP 150/77; BP 154/73; PULSE 81; PULSE 85; PULSE 91
--- NOTE | 2024-12-20 13:33 | W.PN.HOSP.TC ---
Today's Communication/Plan
-
UCx E.Coli with intermediate sensitivity to ceftriaxone. Change abx to cipro.
Assessment / Plan
Assessment / Plan
79F with hypothyroidism and PAF p/w weakness, pain, found to have L renal cyst and UTI.
A/P:
E. Coli UTI
Left Renal Cyst
CT scan done in the ED shows 1.8 cm L lower pole cystic structure with surrounding stranding / inflammation.
Urine culture shows E. Coli >100K, sensitivities intermediate to ceftriaxone, so we will change antibiotic to Cipro since that is an option for oral antibiotics. Have d/w ID.
Urology consulted, concern for ruptured cyst vs complex UTI, observing on abx for now. Appears to be improving.
Follow fever curve. Monitor for any new / worsening symptoms.
Fall
possibly vasovagal syncope episode post-shower on 12/03.
CT x 2 without evidence of intracranial abnormality.
No orthostatic hypotension
EKG with NSR, tele monitor without arrhythmia.
PT cleared pt for home
Paroxysmal Atrial Fibrillation
Stable, in NSR.
Continue Cardizem with holding parameters.
Eliquis
Benign Hypertension
BP elevated
Continue diltiazem, if remains high will adjust dose
Hypothyroidism
Continue synthroid
OAB
Mybetriq currently on hold
Follow-up with Dr. Adkins as planned.
DVT Prophylaxis: Eliquis
Code Status: Full
Anticipated Discharge: Within 24 hours
Subjective/Interval History
-
Date of Service: December 20, 2024
Patient denies abdominal pain today.
Objective Data
-
Labs:
Laboratory Results
12/19/24
07:03
WBC 5.8
Hgb 10.9 L
Hct 33.1 L
Plt Count 214
Sodium 139
Potassium 4.1
Chloride 105
Carbon Dioxide 27
BUN 10
Creatinine 0.6
Glucose 91
Calcium 8.7
Vital Signs:
Vital Signs
Temp Pulse Resp BP Pulse Ox
97.7 F 81 16 140/78 96
12/20/24 11:05 12/20/24 11:05 12/20/24 11:05 12/20/24 11:05 12/20/24 11:05
I&O
12/19/24 12/20/24 12/21/24
06:59 06:59 06:59
Intake Total 1500 / 1500 1300 / 1300
Balance 1500 / 1500 1300 / 1300
Review of Systems
-
All other systems: Reviewed and negative
Physical Exam
-
General: No Apparent Distress
HEENT: Moist Mucous Membranes, Anicteric, PERRLA and Nose Appears Normal
Respiratory: Clear to Auscultation; Negative Wheezes, Rales or Rhonchi
Cardiac: Regular Rhythm and S1/S2; Negative Murmur, Rub or Gallop
GI: Soft, Nontender, Nondistended and Normal Bowel Sounds
Musculoskeletal: No Edema
Skin: Warm and Dry; Negative Rash, Ulcers or Lesions
Neuro: Awake and AO x 3
Hematologic / Lymphatic: No Lymphadenopathy
Psych: Calm
Data Reviewed
-
Labs: Labs Reviewed by me and Discussed with Patient
[2024-12-20 15:01] VITALS: BP 131/57
--- NOTE | 2024-12-20 15:20 | W.PN.URO.CBU ---
Today's Communication / Plan
-
ciontinue present care
Assessment / Plan
-
complex uti possibe pyelo blod cxs neg and urcx pending pt much better as expected et flank ain niot fully resolved will dfolow bt this is expected will reimage if fevr chills but for now this is the inflammatory discomfort expected from
pyelo or rupture cyst
Diagnosis
-
Date of Service: December 20, 2024
-
Patient Diagnosis:
Post Op Day:
Patient Diagnosis:
Post Op Day:
Patient Diagnosis:ascending uti complex vs cyst ruptire left lower pole blod cx s neg await ur cx
Post Op Day:
Subjective
-
better every day
Objective
-
Vital Signs
Temp Pulse Resp BP Pulse Ox
98.1 F 73 20 131/57 98
12/20/24 15:01 12/20/24 15:01 12/20/24 15:01 12/20/24 15:01 12/20/24 15:01
Intake and Output
12/19/24 12/20/24 12/21/24
06:59 06:59 06:59
Intake Total 1500 / 1500 1300 / 1300
Balance 1500 / 1500 1300 / 1300
Intake:
Oral fluids 1500 / 1500 1300 / 1300
Other:
How many times incontinent 4
MODERATE amount urine
Number of approximated MODERATE 2 2
amounts of urine
Number of approximated LARGE 2
amounts of urine
Laboratory Results
12/19/24 07:03
12/19/24 07:03
Physical Exam
-
General - well developed, well nourished, no acute distress
Chest - clear bilaterally
Abdomen - soft, non-tender, positive bowel sounds, no CVAT, no incisional pain or distention
Genitalia - normal
Rectal - normal
Skin - warm & dry with no rash
Neuro - AOx3, no motor deficits
Extremities - no clubbing, no cyanosis, no edema
Incision - clean, dry
Dressing - clean, dry, intact
Counseling
-
no gu changes
--- NOTE | 2024-12-20 15:49 | CM ---
Chart reviewed.
Patient w/ E. Coli UTI, abx changed to cipro
Therapy has no skilled needs at d/c
Urology following
Plan: Home, no needs
[2024-12-20 19:54] VITALS: BP 160/82; BP 165/83; BP 166/83; PULSE 77; PULSE 81; PULSE 86
[2024-12-20] MEDS: CIPRO 500 MG PO (19:59)
[2024-12-20 23:27] VITALS: BP 111/68
[2024-12-21 03:00] VITALS: BP 123/65
[2024-12-21] MEDS: SYNTHROID 75 MCG PO (06:24)
[2024-12-21 07:15] VITALS: BP 150/69
[2024-12-21] MEDS: CARDIZEM CD 120 MG PO (07:52)
[2024-12-21] MEDS: CIPRO 500 MG PO (07:52)
[2024-12-21] MEDS: ELIQUIS 5 MG PO (07:52)
[2024-12-21 08:32] VITALS: BP 150/69
--- NOTE | 2024-12-21 10:53 | W.DCSUMMARY ---
Discharge Summary
Discharge Data
Date of Admission: 12/17/24
Date of Discharge: 12/21/24
Discharge Plan
-
Patient Disposition: Home (Routine Discharge)
Discharge Diagnosis/Procedures: Complex UTI
Diet: Regular
Activity: No restrictions
Instructions: Urinary tract infections in adults
Referrals:
Mario Mccarthy MD [Family Provider, Internal Medicine] - in less than 1 week
Gerson Garza MD [Active, Urology]
Referral Note: call dr garza [phone] if new concerns otherwise appt 6 weeks with urine for culture
Additional Discharge Medication Instructions: Complete full antiobiotic course. If pain worsens or you develop fever, call your doctor. Return to ER if any emergency. Follow up with your PCP and urologist as outpatient.
Prescriptions:
New
ciprofloxacin HCl 500 mg Tablet
500 mg PO BID 6 Days Qty: 12 0RF
Continued
lysine 500 MG tablet
500 mg PO DAILY
cholecalciferol (vitamin D3) 1,000 UNITS tablet
1,000 units PO DAILY
calcium carbonate-vitamin D3 [Calcium 600 + D(3)] 1 EACH tablet
1 ea PO HS
diltiazem HCl 120 mg Capsule,Extended Release 24hr
120 mg PO DAILY 30 Days Qty: 30 0RF
Eliquis 5 mg Tablet
5 mg PO BID 30 Days Qty: 60 0RF
levothyroxine 75 mcg tablet
75 mcg PO DAILY
mirabegron [Myrbetriq] 25 mg tablet extended release 24 hr
25 mg PO DAILY
Discharge Orders:
Discharge Patient (As Directed); Ordered 12/21/24
Ordered By: Carmen Mcleod
Discharge Date and Time
Print Language: BHUTANESE
[2024-12-21 11:15] VITALS: BP 130/69
--- NOTE | 2024-12-21 11:26 | CM ---
CM reviewed chart, patient seen bedside with family.
Patient for discharge today, confirms transport home.
IMM verbally reviewed, provided with copy, placed in chart.
Plan; home no needs
== END 2024-12-21 13:12 | disposition home or self-care (01) | DRG 690 ==
LOC: 4 WEST ACU 01:04
PROVIDERS: Emergency Medicine; Internal Medicine; Nurse Practitioner; ADMITTING PHYSICIAN Hospitalist; ATTENDING PHYSICIAN Internal Medicine; CONSULT PHYSICIAN Specialist; EMERGENCY PHYSICIAN Emergency Medicine; FAMILY PHYSICIAN Internal Medicine
DX: N39.0 Urinary tract infection, site not specified (principal); N28.1 Cyst of kidney, acquired; B96.20 Unspecified Escherichia coli [E. coli] as the cause of diseases classified elsewhere; E03.9 Hypothyroidism, unspecified; I48.0 Paroxysmal atrial fibrillation; I10 Essential (primary) hypertension; N32.81 Overactive bladder; Z87.440 Personal history of urinary (tract) infections; Z87.442 Personal history of urinary calculi; K21.9 Gastro-esophageal reflux disease without esophagitis; Z79.01 Long term (current) use of anticoagulants; Z79.890 Hormone replacement therapy; Z79.899 Other long term (current) drug therapy
CPT/HCPCS: 70450; 74177; 80048; 80053; 81003; 81015; 83735; 85025; 85027; 87040; 87077; 87086; 87186; 93005; 96361; 96365; 96375; 97116; 97162; 97165; 99285; Q9967

== ENCOUNTER 2025-01-18 05:44 | Day surgery (SDC) | payer OTHER, SELFPAY ==
[2025-01-18] VITALS (17 sets, daily range): BP systolic 131–176; BP diastolic 56–83; BMI 23.5
[2025-01-18] MEDS: HEPARIN 5000 UNITS SC (06:26)
[2025-01-18] MEDS: NORMOSOL-R/PLASMALYTE-A 1000 IV (06:45)
[2025-01-18] MEDS: DILAUDID 0.25 MG IV (09:23)
[2025-01-18] MEDS: DILAUDID 0.5 MG IV ×2 (09:33→09:50)
[2025-01-18] MEDS: ZOFRAN 4 MG IV (10:20)
[2025-01-18] MEDS: TORADOL 15 MG IV (11:10)
[2025-01-18] MEDS: TYLENOL 650 MG PO (12:56)
[2025-01-18] MEDS: COMPAZINE 5 MG IV (13:56)
== END 2025-01-18 17:20 | disposition home or self-care (01) ==
LOC: SDS 05:44
PROVIDERS: ATTENDING PHYSICIAN Obstetrics & Gynecology
DX: N81.2 Incomplete uterovaginal prolapse (principal); N39.3 Stress incontinence (female) (male); N36.41 Hypermobility of urethra; D25.9 Leiomyoma of uterus, unspecified
CPT/HCPCS: 57425; 58542; 57288; 86850; 86900; 86901; 88305; C1763; C1771